=== PATIENT | female | born 1990 | race Hispanic/Latino ===

== ENCOUNTER 2018-03-30 19:57 | Emergency (ER) | payer SELFPAY ==
[2018-03-30 20:10] VITALS: RESP 18; TEMP 97.7; O2SAT 100
[2018-03-30 20:11] VITALS: BMI 18.6
--- NOTE | 2018-03-30 20:28 | ED PDOC ---
Arrival/HPI - General Chief Complaint: Lower Extremity Problem/Injury Time Seen by Provider: 03/30/18 20:02 Historian: Patient - History of Present Illness Narrative History of Present Illness (Text): 03/30/18 20:25 27yo female with no significant pmhx who present with complaint of right knee swelling x 3days. she reports multiple history of this swelling in the past. States is usually drained by Dr. Cowart. States she is trying to drain it now before it gets to the point it usually gets to. Denies pain to the knee. States she have had multiple test , including imaging. she denies any calf pain, trauma, redness, any other complaint. Past Medical History - Provider Review Nursing Documentation Reviewed: Yes - Infectious Disease Hx of Infectious Diseases: None - Gastrointestinal Hx Crohn's Disease: Yes - Psychiatric Hx Substance Use: No - Surgical History Other/Comment: Bowel resection 2010 - Suicidal Assessment Feels Threatened In Home Enviroment: No Family/Social History - Physician Review Nursing Documentation Reviewed: Yes Family/Social History: Unknown Family HX Smoking Status: Former Smoker Hx Alcohol Use: No Hx Substance Use: No Allergies/Home Meds Allergies/Adverse Reactions: Allergies No Known Allergies Allergy (Verified 03/30/18 20:15) Home Medications: Home Meds Medication Instructions Recorded Confirmed RX: No Known Home Med 03/30/18 03/30/18 Review of Systems - Physician Review All systems were reviewed & negative as marked: Yes - Review of Systems Constitutional: Normal Eyes: Normal ENT: Normal Respiratory: Normal Cardiovascular: Normal Gastrointestinal: Normal Genitourinary Female: Normal Musculoskeletal: Arthralgias (Right knee swelling) Skin: Normal Neurological: Normal Endocrine: Normal Hemo/Lymphatic: Normal Psychiatric: Normal Physical Exam Vital Signs Reviewed: Yes Vital Signs Temp Pulse Resp BP Pulse Ox 03/30/18 20:09 97.7 F 65 18 125/82 100 Temperature: Afebrile Blood Pressure: Normal Pulse: Regular Respiratory Rate: Normal Appearance: Positive for: Well-Appearing, Non-Toxic, Comfortable Pain Distress: None Mental Status: Positive for: Alert and Oriented X 3 - Systems Exam Head: Present: Atraumatic, Normocephalic Pupils: Present: PERRL Extroacular Muscles: Present: EOMI Conjunctiva: Present: Normal Mouth: Present: Moist Mucous Membranes Neck: Present: Normal Range of Motion Respiratory/Chest: Present: Clear to Auscultation, Good Air Exchange. No: Respiratory Distress, Accessory Muscle Use Cardiovascular: Present: Regular Rate and Rhythm, Normal S1, S2. No: Murmurs Abdomen: No: Tenderness, Distention, Peritoneal Signs Back: Present: Normal Inspection Upper Extremity: Present: Normal Inspection. No: Cyanosis, Edema Lower Extremity: Present: Normal ROM, Swelling (Mild swelling of right knee noted), Neurovascularly Intact. No: Edema, Tenderness, Erythema Neurological: Present: GCS=15, CN II-XII Intact, Speech Normal Skin: Present: Warm, Dry, Normal Color. No: Rashes Psychiatric: Present: Alert, Oriented x 3, Normal Insight, Normal Concentration Medical Decision Making ED Course and Treatment: 03/31/18 01:29 Pt presented to ED for stated history. she was ambulatory with steady gait in ED. She reproted multiple history of same swelling, worse that she had today. Pt have mild swelling/effusion on her right knee. she was advised to f/u with orthopedist Advised to compress and elevate knee to relieve swelling. Disposition/Present on Arrival - Present on Arrival Any Indicators Present on Arrival: No History of DVT/PE: No History of Uncontrolled Diabetes: No Urinary Catheter: No History of Decub. Ulcer: No History Surgical Site Infection Following: None - Disposition Have Diagnosis and Disposition been Completed?: Yes Diagnosis: Knee effusion Disposition: HOME/ ROUTINE Disposition Time: 20:30 Patient Plan: Discharge Condition: STABLE Discharge Instructions (ExitCare): Chronic Knee Pain Additional Instructions: Compress, elevate and rest knee Follow up with orthopedist Referrals: Michelle Craft MD [Staff Provider] - Follow up with primary Forms: [employer] (Kyrgyz)
[2018-03-30 22:16] VITALS: BP 118/70; PULSE 69
== END 2018-03-30 21:52 | disposition home or self-care (01) ==
LOC: ED 19:57
DX: M25.461 Effusion, right knee (principal); Z87.891 Personal history of nicotine dependence